=== PATIENT | male | born 1970 | race Hispanic/Latino ===

== ENCOUNTER 2021-05-08 12:55 | Emergency (ER) | payer OTHER ==
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
[2021-05-08 13:41] VITALS: BP 142/92; TEMP 98.2; O2SAT 99
== END 2021-05-08 13:36 | disposition home or self-care (01) ==
LOC: ER 12:55
DX: Z04.3 Encounter for examination and observation following other accident (principal); V49.49XA Driver injured in collision with other motor vehicles in traffic accident, initial encounter
CPT/HCPCS: 99281